=== PATIENT | female | born 1960 | race Caucasian/White ===

== ENCOUNTER → 2018-07-22 07:42 | Outpatient (CLI) | payer OTHER, SELFPAY ==
--- NOTE | 2018-07-22 | DI.MG.S_ITS ---
BILATERAL DIGITAL SCREENING MAMMOGRAM 3D/2D WITH CAD: 07/22/2018 CLINICAL: Routine screening. Family history of breast cancer. Comparison is made to exams dated: 06/30/2016 mammogram, 06/28/2015 mammogram, and 02/27/2014 mammogram - [facility]. The tissue of both breasts is heterogeneously dense. This may lower the sensitivity of mammography. Current study was also evaluated with a Computer Aided Detection (CAD) system. No significant masses, calcifications, or other findings are seen in either breast. There has been no significant interval change. IMPRESSION: NEGATIVE There is no mammographic evidence of malignancy. A 1 year screening mammogram is recommended. This exam was interpreted at Station ID: [id number]. NOTE: For mammograms, a report in lay terms will be sent to the patient. Approximately 15% of breast malignancies will not be visualized mammographically. In the management of a palpable breast mass, a negative mammogram must not discourage biopsy of a clinically suspicious lesion. Electronically Signed By: Axel maradiaga/albina:07/22/2018 17:05:43 copy to: Amena Carr letter sent: Normal Exam ACR BI-RADS Category 1: Negative [id number]
== END ==
PROVIDERS: Family Provider Family Medicine; PCP Family Medicine; Visit Provider Family Medicine
DX: Z12.31 Encounter for screening mammogram for malignant neoplasm of breast (principal); Z80.3 Family history of malignant neoplasm of breast
CPT/HCPCS: 77063; 77067

== ENCOUNTER 2018-12-18 13:58 | Emergency (ER) | payer OTHER, SELFPAY ==
[2018-12-18 14:04] VITALS: BP 149/79; PULSE 90; RESP 13; TEMP 36.6; O2SAT 99
--- NOTE | 2018-12-18 14:07 | DI.RAD.S_ITS ---
PROCEDURE: XR CHEST 1V INDICATIONS: chest pain TECHNIQUE: One view of the chest was acquired. COMPARISON: None. FINDINGS: Surgical changes and devices: None. Lungs and pleura: Lungs are clear. No pleural effusions or pneumothorax. Mediastinum: Mediastinal contours appear normal. Heart size is normal. Bones and chest wall: No suspicious bony lesions. Overlying soft tissues appear unremarkable. IMPRESSION: Portable chest within normal limits. Dictated by: Dylan Farias M.D. on 12/18/2018 at 13:22 Approved by: Dylan Farias M.D. on 12/18/2018 at 13:22
--- NOTE | 2018-12-18 14:13 | ED.CHESTPAIN ---
HPI - Chest Pain <Micheline Brown PA-C - Last Filed: 12/18/18 20:39> General Chief Complaint: Chest Pain Stated Complaint: Chest pain/sob Time Seen by Provider: 12/18/18 13:58 Source: patient Mode of arrival: ambulatory Limitations: no limitations History of Present Illness HPI narrative: This healthy 58-year-old female comes to ED secondary to onset of sudden chest pain about 1/2 hour prior to arrival. She describes this as a pressure sensation rather than pain, moderate, mid chest. It was associated with some ?slight? tingling in her right arm and fingers. No pain in the arm, no weakness. She states that she felt sweaty with this, then clammy, had the urge to have a bowel movement and did go. She states that she felt short of breath with this in that her chest was tight, no cough or wheeze. She denies any pain in her face or jaw. She denies any nausea or vomiting, states this could have been some heartburn though she does not typically get that. She denies any pain or swelling recently in her lower extremities. She states that she finished brunch about 1/2 hour prior to onset of symptoms, no new or different foods. She has not had any recent illness or fever. She denies any other similar symptoms in the past. She has no cardiac history or early family history of cardiac disease Related Data Allergies Allergy/AdvReac Type Severity Reaction Status Date / Time INGREDIENT: NDA - NO KNOWN Allergy Unknown Uncoded 10/20/17 11:54 DRUG ALLERGIES Review of Systems <Micheline Brown PA-C - Last Filed: 12/18/18 20:39> Review of Systems ROS Unobtainable: All systems reviewed & are unremarkable except as noted in HPI and below PFSH <Micheline Brown PA-C - Last Filed: 12/18/18 20:39> Medical History (Updated 12/18/18 @ 17:27 by Micheline Brown PA-C) Healthy female adult (Chronic) Surgical History (Updated 12/18/18 @ 14:26 by Micheline Brown PA-C) Status post cholecystectomy (Resolved) Social History Smoking Status: Never smoker Social History Smoking Status: Never smoker Exam <Micheline Brown PA-C - Last Filed: 12/18/18 20:39> Narrative Exam Narrative: GENERAL APPEARANCE: Patient sitting comfortably, in no distress. HEENT: PERRL, EOMI, conjunctiva pink, normal oropharynx NECK/THYROID: Neck supple, no JVD. LUNGS: Clear to auscultation bilaterally. CHEST: Mild inferior sternal tenderness to palpation, no tenderness elsewhere HEART: Regular rate and rhythm without murmur, normal S1, S2, no S3 or S4. ABDOMEN: Soft, NT, ND, + BS x 4 quadrants EXTREMITIES: No cyanosis or edema. No calf tenderness NEUROLOGIC: Alert and oriented with normal speech, gait, and coordination DERMATOLOGIC: No exanthem NEUROLOGIC: Alert and oriented, normal speech, gait and coordination. Initial Vital Signs Initial Vital Signs: Vital Signs Temperature 97.8 F 12/18/18 14:04 Pulse Rate 90 12/18/18 14:04 Respiratory Rate 13 12/18/18 14:04 Blood Pressure 149/79 H 12/18/18 14:04 Pulse Oximetry 99 12/18/18 14:04 <Noman Weaver DO - Last Filed: 12/20/18 08:16> Initial Vital Signs Initial Vital Signs: Vital Signs Temperature 97.8 F 12/18/18 14:04 Pulse Rate 90 12/18/18 14:04 Respiratory Rate 13 12/18/18 14:04 Blood Pressure 149/79 H 12/18/18 14:04 Pulse Oximetry 99 12/18/18 14:04 Scores <Micheline Brown PA-C - Last Filed: 12/18/18 20:39> HEART Score Heart Score history: Slightly Suspicious Heart Score EKG: Normal Heart Score Age: 45-64 years old Heart Score risk factors: No known risk factors Heart Score troponin: < or = to normal limit Heart Score Total: 1 Course <Micheline Brown PA-C - Last Filed: 12/18/18 20:39> Orders Ordered: Discontinued Medications Aspirin (Aspirin) 325 mg PO NOW ONE Stop: 12/18/18 14:29 Last Admin: 12/18/18 14:36 Dose: Not Given Aspirin (Aspirin Chew) 324 mg PO NOW ONE Stop: 12/18/18 14:37 Last Admin: 12/18/18 14:37 Dose: 324 mg Reevaluation(s) Additional Reevaluation(s): Patient continued to feel improved shortly after discharge and felt well within about 30 minutes of arrival. Her symptoms continue to gradually resolve. Symptoms started at rest, atypical for cardiac pain. Heart score 1. Reviewed findings with patient including repeat troponin. She agrees to follow up with PCP and discuss whether to pursue stress testing. She agreed to return if any new or acutely worsening symptoms in the interim. Vital Signs - 8 hr 12/18/18 14:04 12/18/18 15:04 12/18/18 16:00 Temperature 97.8 F Pulse Rate 90 80 79 Respiratory Rate 13 18 17 Blood Pressure 149/79 H Blood Pressure [Left Arm] 123/76 113/69 Pulse Oximetry 99 97 97 12/18/18 17:37 Temperature Pulse Rate 82 Respiratory Rate 16 Blood Pressure 127/74 Blood Pressure [Left Arm] Pulse Oximetry 97 <Noman Weaver DO - Last Filed: 12/20/18 08:16> Orders Ordered: Discontinued Medications Aspirin (Aspirin) 325 mg PO NOW ONE Stop: 12/18/18 14:29 Last Admin: 12/18/18 14:36 Dose: Not Given Aspirin (Aspirin Chew) 324 mg PO NOW ONE Stop: 12/18/18 14:37 Last Admin: 12/18/18 14:37 Dose: 324 mg Vital Signs - 8 hr 12/18/18 14:04 12/18/18 15:04 12/18/18 16:00 Temperature 97.8 F Pulse Rate 90 80 79 Respiratory Rate 13 18 17 Blood Pressure 149/79 H Blood Pressure [Left Arm] 123/76 113/69 Pulse Oximetry 99 97 97 12/18/18 17:37 Temperature Pulse Rate 82 Respiratory Rate 16 Blood Pressure 127/74 Blood Pressure [Left Arm] Pulse Oximetry 97 MDM - Chest Pain <Micheline Brown PA-C - Last Filed: 12/18/18 20:39> Lab Data Attestation: I reviewed the patient's lab results. Result diagrams: 12/18/18 14:10 12/18/18 14:10 Lab Results 12/18/18 12/18/18 12/18/18 Range/Units 14:10 14:10 14:10 WBC 8.9 (4.5-11.0) X10^3/uL RBC 4.67 (4.0-5.2) X10^6/uL Hgb 15.3 (12.0-16.0) g/dL Hct 44.9 (36-46) % MCV 96.1 (80-100) fL MCH 32.8 (26-34) PG MCHC 34.1 (30-36) % RDW 12.9 (11.6-14.8) % Plt Count 325 (150-400) X10^3/uL Neut % (Auto) 54.8 (50-75) % Lymph % (Auto) 32.4 (25-40) % Mcleod % (Auto) 7.0 (3-14) % Eos % (Auto) 5.1 H (2-4) % Baso % (Auto) 0.7 (0-2) % Neut # (Auto) 4900 (1570-7658) /uL Lymph # (Auto) 2900 (4476-7734) /uL Mcleod # (Auto) 600 (0-900) /uL Eos # (Auto) 500 H (0-450) /uL Baso # (Auto) 100 (0-100) /uL PT 11.1 (10.1-12.7) SECONDS INR 1.0 (0.9-1.3) APTT 27 (26.4-36.2) SECONDS D-Dimer (<230) ng/mL Sodium 139 (137-145) mmol/L Potassium 3.8 (3.4-5.1) mmol/L Chloride 101 (98-107) mmol/L Carbon Dioxide 28 (22-32) mmol/L BUN 20 H (7-17) mg/dL Creatinine 0.90 (0.52-1.04) mg/dL Estimated GFR > 60.0 (>60) mL/min BUN/Creatinine Ratio 22.2 H (6-22) Glucose 122 H (70-100) mg/dL Calcium 10.0 (8.4-10.2) mg/dL Total Bilirubin 0.7 (0.2-1.3) mg/dL AST 92 H (14-36) IU/L ALT 47 (9-52) IU/L Alkaline Phosphatase 74 (38-126) U/L Total Creatine Kinase 217 H (30-135) U/L CK-MB (CK-2) 2.99 H (<2.37) ng/mL CK-MB (CK-2) Rel Index 1.4 L (1.5-5.0) % Troponin I < 0.012 (0.01-0.034) ng/mL Total Protein 7.2 (6.3-8.2) g/dL Albumin 4.5 (3.5-5.0) g/dL Globulin 2.7 (1.7-4.1) g/dL Albumin/Globulin Ratio 1.7 (1.0-2.8) Lipase 105 (23-300) U/L 12/18/18 12/18/18 Range/Units 14:10 16:20 WBC (4.5-11.0) X10^3/uL RBC (4.0-5.2) X10^6/uL Hgb (12.0-16.0) g/dL Hct (36-46) % MCV (80-100) fL MCH (26-34) PG MCHC (30-36) % RDW (11.6-14.8) % Plt Count (150-400) X10^3/uL Neut % (Auto) (50-75) % Lymph % (Auto) (25-40) % Mcleod % (Auto) (3-14) % Eos % (Auto) (2-4) % Baso % (Auto) (0-2) % Neut # (Auto) (1384-4761) /uL Lymph # (Auto) (3795-1881) /uL Mcleod # (Auto) (0-900) /uL Eos # (Auto) (0-450) /uL Baso # (Auto) (0-100) /uL PT (10.1-12.7) SECONDS INR (0.9-1.3) APTT (26.4-36.2) SECONDS D-Dimer 128 (<230) ng/mL Sodium (137-145) mmol/L Potassium (3.4-5.1) mmol/L Chloride (98-107) mmol/L Carbon Dioxide (22-32) mmol/L BUN (7-17) mg/dL Creatinine (0.52-1.04) mg/dL Estimated GFR (>60) mL/min BUN/Creatinine Ratio (6-22) Glucose (70-100) mg/dL Calcium (8.4-10.2) mg/dL Total Bilirubin (0.2-1.3) mg/dL AST (14-36) IU/L ALT (9-52) IU/L Alkaline Phosphatase (38-126) U/L Total Creatine Kinase (30-135) U/L CK-MB (CK-2) (<2.37) ng/mL CK-MB (CK-2) Rel Index (1.5-5.0) % Troponin I < 0.012 (0.01-0.034) ng/mL Total Protein (6.3-8.2) g/dL Albumin (3.5-5.0) g/dL Globulin (1.7-4.1) g/dL Albumin/Globulin Ratio (1.0-2.8) Lipase (23-300) U/L Imaging Data Chest x-ray: Radiologist's impression: [place] [address] XRay Report Signed Patient: Neelam Dunne [facility]#: [id number] : 1960Acct:[id number] Age/Sex: 58 / FDate of Service: 12/18/18 Loc: ED Accession Number: [id number] Procedure: XR chest 1V Ordering Provider: Noman Weaver D.O. PROCEDURE: XR CHEST 1V INDICATIONS: chest pain TECHNIQUE: One view of the chest was acquired. COMPARISON: None. FINDINGS: Surgical changes and devices: None. Lungs and pleura: Lungs are clear. No pleural effusions or pneumothorax. Mediastinum: Mediastinal contours appear normal. Heart size is normal. Bones and chest wall: No suspicious bony lesions. Overlying soft tissues appear unremarkable. IMPRESSION: Portable chest within normal limits. Dictated by: Dylan Farias M.D. on 12/18/2018 at 13:22 Approved by: Dylan Farias M.D. on 12/18/2018 at 13:22 ECG Data Attestation: I personally reviewed and interpreted this ECG as follows: (Normal sinus rhythm, a rate 71, normal axis) Prior ECG tracings: not available for review <Noman Weaver DO - Last Filed: 12/20/18 08:16> Lab Data Lab Results 12/18/18 12/18/18 12/18/18 Range/Units 14:10 14:10 14:10 WBC 8.9 (4.5-11.0) X10^3/uL RBC 4.67 (4.0-5.2) X10^6/uL Hgb 15.3 (12.0-16.0) g/dL Hct 44.9 (36-46) % MCV 96.1 (80-100) fL MCH 32.8 (26-34) PG MCHC 34.1 (30-36) % RDW 12.9 (11.6-14.8) % Plt Count 325 (150-400) X10^3/uL Neut % (Auto) 54.8 (50-75) % Lymph % (Auto) 32.4 (25-40) % Mcleod % (Auto) 7.0 (3-14) % Eos % (Auto) 5.1 H (2-4) % Baso % (Auto) 0.7 (0-2) % Neut # (Auto) 4900 (5322-8784) /uL Lymph # (Auto) 2900 (3161-8178) /uL Mcleod # (Auto) 600 (0-900) /uL Eos # (Auto) 500 H (0-450) /uL Baso # (Auto) 100 (0-100) /uL PT 11.1 (10.1-12.7) SECONDS INR 1.0 (0.9-1.3) APTT 27 (26.4-36.2) SECONDS D-Dimer (<230) ng/mL Sodium 139 (137-145) mmol/L Potassium 3.8 (3.4-5.1) mmol/L Chloride 101 (98-107) mmol/L Carbon Dioxide 28 (22-32) mmol/L BUN 20 H (7-17) mg/dL Creatinine 0.90 (0.52-1.04) mg/dL Estimated GFR > 60.0 (>60) mL/min BUN/Creatinine Ratio 22.2 H (6-22) Glucose 122 H (70-100) mg/dL Calcium 10.0 (8.4-10.2) mg/dL Total Bilirubin 0.7 (0.2-1.3) mg/dL AST 92 H (14-36) IU/L ALT 47 (9-52) IU/L Alkaline Phosphatase 74 (38-126) U/L Total Creatine Kinase 217 H (30-135) U/L CK-MB (CK-2) 2.99 H (<2.37) ng/mL CK-MB (CK-2) Rel Index 1.4 L (1.5-5.0) % Troponin I < 0.012 (0.01-0.034) ng/mL Total Protein 7.2 (6.3-8.2) g/dL Albumin 4.5 (3.5-5.0) g/dL Globulin 2.7 (1.7-4.1) g/dL Albumin/Globulin Ratio 1.7 (1.0-2.8) Lipase 105 (23-300) U/L 12/18/18 12/18/18 Range/Units 14:10 16:20 WBC (4.5-11.0) X10^3/uL RBC (4.0-5.2) X10^6/uL Hgb (12.0-16.0) g/dL Hct (36-46) % MCV (80-100) fL MCH (26-34) PG MCHC (30-36) % RDW (11.6-14.8) % Plt Count (150-400) X10^3/uL Neut % (Auto) (50-75) % Lymph % (Auto) (25-40) % Mcleod % (Auto) (3-14) % Eos % (Auto) (2-4) % Baso % (Auto) (0-2) % Neut # (Auto) (4968-1350) /uL Lymph # (Auto) (9503-6137) /uL Mcleod # (Auto) (0-900) /uL Eos # (Auto) (0-450) /uL Baso # (Auto) (0-100) /uL PT (10.1-12.7) SECONDS INR (0.9-1.3) APTT (26.4-36.2) SECONDS D-Dimer 128 (<230) ng/mL Sodium (137-145) mmol/L Potassium (3.4-5.1) mmol/L Chloride (98-107) mmol/L Carbon Dioxide (22-32) mmol/L BUN (7-17) mg/dL Creatinine (0.52-1.04) mg/dL Estimated GFR (>60) mL/min BUN/Creatinine Ratio (6-22) Glucose (70-100) mg/dL Calcium (8.4-10.2) mg/dL Total Bilirubin (0.2-1.3) mg/dL AST (14-36) IU/L ALT (9-52) IU/L Alkaline Phosphatase (38-126) U/L Total Creatine Kinase (30-135) U/L CK-MB (CK-2) (<2.37) ng/mL CK-MB (CK-2) Rel Index (1.5-5.0) % Troponin I < 0.012 (0.01-0.034) ng/mL Total Protein (6.3-8.2) g/dL Albumin (3.5-5.0) g/dL Globulin (1.7-4.1) g/dL Albumin/Globulin Ratio (1.0-2.8) Lipase (23-300) U/L Discharge Plan Departure Patient Disposition: Home Clinical Impression: Chest pain Qualifiers: Chest pain type: unspecified Qualified Code(s): R07.9 - Chest pain, unspecified Discharge Date/Time: 12/18/18 17:37 Interventions: ED Discharge Assessment Last Done: 12/18/18 17:37 Instructions: DI for Chest Pain Activity Restrictions/Additional Instructions: As we talked about, you should return to the closest emergency department if you have any chest pain again, shortness of breath or other worsening symptoms. Your lab testing and x-ray did not show any acute problem today, nor did your EKG. Please follow-up with your PCP in the next few days for recheck and to talk about whether to do any further testing such as a stress test. Referrals: Gus Villalobos MD [Primary Care Provider] - <Noman Weaver DO - Last Filed: 12/20/18 08:16> [facility] ED Attending Brenda Attestation: I was immediately available in the department for consultation. Documentation has been reviewed. I agree with assessment and plan.
[2018-12-18 14:18] LABS: Add Manual Diff / Slide Review NO; Basophils Absolute Auto 100 /uL (0-100); Basophils Percent Auto 0.7 % (0-2); Eosinophils Absolute Auto 500 /uL (0-450); Eosinophils Percent Auto 5.1 % (2-4); Hematocrit 44.9 % (36-46); Hemoglobin 15.3 g/dL (12.0-16.0); Lymphocytes Absolute Auto 2900 /uL (1100-4500); Lymphocytes Percent Auto 32.4 % (25-40); Mean Corpuscular HGB Conc 34.1 % (30-36); Mean Corpuscular Hemoglobin 32.8 PG (26-34); Mean Corpuscular Volume 96.1 fL (80-100); Monocytes Absolute Auto 600 /uL (0-900); Neutrophils Absolute Auto 4900 /uL (1500-7000); Neutrophils Percent Auto 54.8 % (50-75); Platelet Count 325 X10^3/uL (150-400); Red Blood Cell Count 4.67 X10^6/uL (4.0-5.2); Red Cell Distribution Width 12.9 % (11.6-14.8); White Blood Cell Count 8.9 X10^3/uL (4.5-11.0)
[2018-12-18 14:24] LABS: Prothrombin Time 11.1 SECONDS (10.1-12.7)
[2018-12-18 14:27] LABS: PTT Partial Thromboplastin Tim 27 SECONDS (26.4-36.2)
--- NOTE | 2018-12-18 14:27 | ED_ITS ---
HPI - Chest Pain <Micheline Brown PA-C - Last Filed: 12/18/18 20:39> General Chief Complaint: Chest Pain Stated Complaint: Chest pain/sob Time Seen by Provider: 12/18/18 13:58 Source: patient Mode of arrival: ambulatory Limitations: no limitations History of Present Illness HPI narrative: This healthy 58-year-old female comes to ED secondary to onset of sudden chest pain about 1/2 hour prior to arrival. She describes this as a pressure sensation rather than pain, moderate, mid chest. It was associated with some ?slight? tingling in her right arm and fingers. No pain in the arm, no weakness. She states that she felt sweaty with this, then clammy, had the urge to have a bowel movement and did go. She states that she felt short of breath with this in that her chest was tight, no cough or wheeze. She denies any pain in her face or jaw. She denies any nausea or vomiting, states this could have been some heartburn though she does not typically get that. She denies any pain or swelling recently in her lower extremities. She states that she finished brunch about 1/2 hour prior to onset of symptoms, no new or different foods. She has not had any recent illness or fever. She denies any other similar symptoms in the past. She has no cardiac history or early family history of cardiac disease Related Data Allergies Allergy/AdvReac Type Severity Reaction Status Date / Time INGREDIENT: NDA - NO KNOWN Allergy Unknown Uncoded 10/20/17 11:54 DRUG ALLERGIES Review of Systems <Micheline Brown PA-C - Last Filed: 12/18/18 20:39> Review of Systems ROS Unobtainable: All systems reviewed & are unremarkable except as noted in HPI and below PFSH <Micheline Brown PA-C - Last Filed: 12/18/18 20:39> Medical History (Updated 12/18/18 @ 17:27 by Micheline Brown PA-C) Healthy female adult (Chronic) Surgical History (Updated 12/18/18 @ 14:26 by Micheline Brown PA-C) Status post cholecystectomy (Resolved) Social History Smoking Status: Never smoker Social History Smoking Status: Never smoker Exam <Micheline Brown PA-C - Last Filed: 12/18/18 20:39> Narrative Exam Narrative: GENERAL APPEARANCE: Patient sitting comfortably, in no distress. HEENT: PERRL, EOMI, conjunctiva pink, normal oropharynx NECK/THYROID: Neck supple, no JVD. LUNGS: Clear to auscultation bilaterally. CHEST: Mild inferior sternal tenderness to palpation, no tenderness elsewhere HEART: Regular rate and rhythm without murmur, normal S1, S2, no S3 or S4. ABDOMEN: Soft, NT, ND, + BS x 4 quadrants EXTREMITIES: No cyanosis or edema. No calf tenderness NEUROLOGIC: Alert and oriented with normal speech, gait, and coordination DERMATOLOGIC: No exanthem NEUROLOGIC: Alert and oriented, normal speech, gait and coordination. Initial Vital Signs Initial Vital Signs: Vital Signs Temperature 97.8 F 12/18/18 14:04 Pulse Rate 90 12/18/18 14:04 Respiratory Rate 13 12/18/18 14:04 Blood Pressure 149/79 H 12/18/18 14:04 Pulse Oximetry 99 12/18/18 14:04 <Noman Weaver DO - Last Filed: 12/20/18 08:16> Initial Vital Signs Initial Vital Signs: Vital Signs Temperature 97.8 F 12/18/18 14:04 Pulse Rate 90 12/18/18 14:04 Respiratory Rate 13 12/18/18 14:04 Blood Pressure 149/79 H 12/18/18 14:04 Pulse Oximetry 99 12/18/18 14:04 Scores <Micheline Brown PA-C - Last Filed: 12/18/18 20:39> HEART Score Heart Score history: Slightly Suspicious Heart Score EKG: Normal Heart Score Age: 45-64 years old Heart Score risk factors: No known risk factors Heart Score troponin: < or = to normal limit Heart Score Total: 1 Course <Micheline Brown PA-C - Last Filed: 12/18/18 20:39> Orders Ordered: Discontinued Medications Aspirin (Aspirin) 325 mg PO NOW ONE Stop: 12/18/18 14:29 Last Admin: 12/18/18 14:36 Dose: Not Given Aspirin (Aspirin Chew) 324 mg PO NOW ONE Stop: 12/18/18 14:37 Last Admin: 12/18/18 14:37 Dose: 324 mg Reevaluation(s) Additional Reevaluation(s): Patient continued to feel improved shortly after d ischarge and felt well within about 30 minutes of arrival. Her symptoms continue to gradually resolve. Symptoms started at rest, atypical for cardiac pain. Heart score 1. Reviewed findings with patient including repeat troponin. She agrees to follow up with PCP and discuss whether to pursue stress testing. She agreed to return if any new or acutely worsening symptoms in the interim. Vital Signs - 8 hr 12/18/18 14:04 12/18/18 15:04 12/18/18 16:00 Temperature 97.8 F Pulse Rate 90 80 79 Respiratory Rate 13 18 17 Blood Pressure 149/79 H Blood Pressure [Left Arm] 123/76 113/69 Pulse Oximetry 99 97 97 12/18/18 17:37 Temperature Pulse Rate 82 Respiratory Rate 16 Blood Pressure 127/74 Blood Pressure [Left Arm] Pulse Oximetry 97 <Noman Weaver DO - Last Filed: 12/20/18 08:16> Orders Ordered: Discontinued Medications Aspirin (Aspirin) 325 mg PO NOW ONE Stop: 12/18/18 14:29 Last Admin: 12/18/18 14:36 Dose: Not Given Aspirin (Aspirin Chew) 324 mg PO NOW ONE Stop: 12/18/18 14:37 Last Admin: 12/18/18 14:37 Dose: 324 mg Vital Signs - 8 hr 12/18/18 14:04 12/18/18 15:04 12/18/18 16:00 Temperature 97.8 F Pulse Rate 90 80 79 Respiratory Rate 13 18 17 Blood Pressure 149/79 H Blood Pressure [Left Arm] 123/76 113/69 Pulse Oximetry 99 97 97 12/18/18 17:37 Temperature Pulse Rate 82 Respiratory Rate 16 Blood Pressure 127/74 Blood Pressure [Left Arm] Pulse Oximetry 97 MDM - Chest Pain <Micheline Brown PA-C - Last Filed: 12/18/18 20:39> Lab Data Attestation: I reviewed the patient's lab results. Result diagrams: 12/18/18 14:10 12/18/18 14:10 Lab Results 12/18/18 12/18/18 12/18/18 Range/Units 14:10 14:10 14:10 WBC 8.9 (4.5-11.0) X10^3/uL RBC 4.67 (4.0-5.2) X10^6/uL Hgb 15.3 (12.0-16.0) g/dL Hct 44.9 (36-46) % MCV 96.1 (80-100) fL MCH 32.8 (26-34) PG MCHC 34.1 (30-36) % RDW 12.9 (11.6-14.8) % Plt Count 325 (150-400) X10^3/uL Neut % (Auto) 54.8 (50-75) % Lymph % (Auto) 32.4 (25-40) % Meade % (Auto) 7.0 (3-14) % Eos % (Auto) 5.1 H (2-4) % Baso % (Auto) 0.7 (0-2) % Neut # (Auto) 4900 (5615-6459) /uL Lymph # (Auto) 2900 (9262-1226) /uL Meade # (Auto) 600 (0-900) /uL Eos # (Auto) 500 H (0-450) /uL Baso # (Auto) 100 (0-100) /uL PT 11.1 (10.1-12.7) SECONDS INR 1.0 (0.9-1.3) APTT 27 (26.4-36.2) SECONDS D-Dimer (<230) ng/mL Sodium 139 (137-145) mmol/L Potassium 3.8 (3.4-5.1) mmol/L Chloride 101 (98-107) mmol/L Carbon Dioxide 28 (22-32) mmol/L BUN 20 H (7-17) mg/dL Creatinine 0.90 (0.52-1.04) mg/dL Estimated GFR > 60.0 (>60) mL/min BUN/Creatinine Ratio 22.2 H (6-22) Glucose 122 H (70-100) mg/dL Calcium 10.0 (8.4-10.2) mg/dL Total Bilirubin 0.7 (0.2-1.3) mg/dL AST 92 H (14-36) IU/L ALT 47 (9-52) IU/L Alkaline Phosphatase 74 (38-126) U/L Total Creatine Kinase 217 H (30-135) U/L CK-MB (CK-2) 2.99 H (<2.37) ng/mL CK-MB (CK-2) Rel Index 1.4 L (1.5-5.0) % Troponin I < 0.012 (0.01-0.034) ng/mL Total Protein 7.2 (6.3-8.2) g/dL Albumin 4.5 (3.5-5.0) g/dL Globulin 2.7 (1.7-4.1) g/dL Albumin/Globulin Ratio 1.7 (1.0-2.8) Lipase 105 (23-300) U/L 12/18/18 12/18/18 Range/Units 14:10 16:20 WBC (4.5-11.0) X10^3/uL RBC (4.0-5.2) X10^6/uL Hgb (12.0-16.0) g/dL Hct (36-46) % MCV (80-100) fL MCH (26-34) PG MCHC (30-36) % RDW (11.6-14.8) % Plt Count (150-400) X10^3/uL Neut % (Auto) (50-75) % Lymph % (Auto) (25-40) % Meade % (Auto) (3-14) % Eos % (Auto) (2-4) % Baso % (Auto) (0-2) % Neut # (Auto) (5437-1835) /uL Lymph # (Auto) (7558-2433) /uL Meade # (Auto) (0-900) /uL Eos # (Auto) (0-450) /uL Baso # (Auto) (0-100) /uL PT (10.1-12.7) SECONDS INR (0.9-1.3) APTT (26.4-36.2) SECONDS D-Dimer 128 (<230) ng/mL Sodium (137-145) mmol/L Potassium (3.4-5.1) mmol/L Chloride (98-107) mmol/L Carbon Dioxide (22-32) mmol/L BUN (7-17) mg/dL Creatinine (0.52-1.04) mg/dL Estimated GFR (>60) mL/min BUN/Creatinine Ratio (6-22) Glucose (70-100) mg/dL Calcium (8.4-10.2) mg/dL Total Bilirubin (0.2-1.3) mg/dL AST (14-36) IU/L ALT (9-52) IU/L Alkaline Phosphatase (38-126) U/L Total Creatine Kinase (30-135) U/L CK-MB (CK-2) (<2.37) ng/mL CK-MB (CK-2) Rel Index (1.5-5.0) % Troponin I < 0.012 (0.01-0.034) ng/mL Total Protein (6.3-8.2) g/dL Albumin (3.5-5.0) g/dL Globulin (1.7-4.1) g/dL Albumin/Globulin Ratio (1.0-2.8) Lipase (23-300) U/L Imaging Data Chest x-ray: Radiologist's impression: [place] [address] XRay Report Signed Patient: Neelam Dunne [facility]#: [id number] : 1960Acct:[id number] Age/Sex: 58 / FDate of Service: 12/18/18 Loc: ED Accession Number: [id number] Procedure: XR chest 1V Ordering Provider: Noman Weaver D.O. PROCEDURE: XR CHEST 1V INDICATIONS: chest pain TECHNIQUE: One view of the chest was acquired. COMPARISON: None. FINDINGS: Surgical changes and devices: None. Lungs and pleura: Lungs are clear. No pleural effusions or pneumothorax. Mediastinum: Mediastinal contours appear normal. Heart size is normal. Bones and chest wall: No suspicious bony lesions. Overlying soft tissues appear unremarkable. IMPRESSION: Portable chest within normal limits. Dictated by: Dylan Farias M.D. on 12/18/2018 at 13:22 Approved by: Dylan Farias M.D. on 12/18/2018 at 13:22 ECG Data Attestation: I personally reviewed and interpreted this ECG as follows: (Normal sinus rhythm, a rate 71, normal axis) Prior ECG tracings: not available for review <Noman Weaver DO - Last Filed: 12/20/18 08:16> Lab Data Lab Results 12/18/18 12/18/18 12/18/18 Range/Units 14:10 14:10 14:10 WBC 8.9 (4.5-11.0) X10^3/uL RBC 4.67 (4.0-5.2) X10^6/uL Hgb 15.3 (12.0-16.0) g/dL Hct 44.9 (36-46) % MCV 96.1 (80-100) fL MCH 32.8 (26-34) PG MCHC 34.1 (30-36) % RDW 12.9 (11.6-14.8) % Plt Count 325 (150-400) X10^3/uL Neut % (Auto) 54.8 (50-75) % Lymph % (Auto) 32.4 (25-40) % Meade % (Auto) 7.0 (3-14) % Eos % (Auto) 5.1 H (2-4) % Baso % (Auto) 0.7 (0-2) % Neut # (Auto) 4900 (4111-5038) /uL Lymph # (Auto) 2900 (0774-2130) /uL Meade # (Auto) 600 (0-900) /uL Eos # (Auto) 500 H (0-450) /uL Baso # (Auto) 100 (0-100) /uL PT 11.1 (10.1-12.7) SECONDS INR 1.0 (0.9-1.3) APTT 27 (26.4-36.2) SECONDS D-Dimer (<230) ng/mL Sodium 139 (137-145) mmol/L Potassium 3.8 (3.4-5.1) mmol/L Chloride 101 (98-107) mmol/L Carbon Dioxide 28 (22-32) mmol/L BUN 20 H (7-17) mg/dL Creatinine 0.90 (0.52-1.04) mg/dL Estimated GFR > 60.0 (>60) mL/min BUN/Creatinine Ratio 22.2 H (6-22) Glucose 122 H (70-100) mg/dL Calcium 10.0 (8.4-10.2) mg/dL Total Bilirubin 0.7 (0.2-1.3) mg/dL AST 92 H (14-36) IU/L ALT 47 (9-52) IU/L Alkaline Phosphatase 74 (38-126) U/L Total Creatine Kinase 217 H (30-135) U/L CK-MB (CK-2) 2.99 H (<2.37) ng/mL CK-MB (CK-2) Rel Index 1.4 L (1.5-5.0) % Troponin I < 0.012 (0.01-0.034) ng/mL Total Protein 7.2 (6.3-8.2) g/dL Albumin 4.5 (3.5-5.0) g/dL Globulin 2.7 (1.7-4.1) g/dL Albumin/Globulin Ratio 1.7 (1.0-2.8) Lipase 105 (23-300) U/L 12/18/18 12/18/18 Range/Units 14:10 16:20 WBC (4.5-11.0) X10^3/uL RBC (4.0-5.2) X10^6/uL Hgb (12.0-16.0) g/dL Hct (36-46) % MCV (80-100) fL MCH (26-34) PG MCHC (30-36) % RDW (11.6-14.8) % Plt Count (150-400) X10^3/uL Neut % (Auto) (50-75) % Lymph % (Auto) (25-40) % Meade % (Auto) (3-14) % Eos % (Auto) (2-4) % Baso % (Auto) (0-2) % Neut # (Auto) (8403-3979) /uL Lymph # (Auto) (6728-2600) /uL Meade # (Auto) (0-900) /uL Eos # (Auto) (0-450) /uL Baso # (Auto) (0-100) /uL PT (10.1-12.7) SECONDS INR (0.9-1.3) APTT (26.4-36.2) SECONDS D-Dimer 128 (<230) ng/mL Sodium (137-145) mmol/L Potassium (3.4-5.1) mmol/L Chloride (98-107) mmol/L Carbon Dioxide (22-32) mmol/L BUN (7-17) mg/dL Creatinine (0.52-1.04) mg/dL Estimated GFR (>60) mL/min BUN/Creatinine Ratio (6-22) Glucose (70-100) mg/dL Calcium (8.4-10.2) mg/dL Total Bilirubin (0.2-1.3) mg/dL AST (14-36) IU/L ALT (9-52) IU/L Alkaline Phosphatase (38-126) U/L Total Creatine Kinase (30-135) U/L CK-MB (CK-2) (<2.37) ng/mL CK-MB (CK-2) Rel Index (1.5-5.0) % Troponin I < 0.012 (0.01-0.034) ng/mL Total Protein (6.3-8.2) g/dL Albumin (3.5-5.0) g/dL Globulin (1.7-4.1) g/dL Albumin/Globulin Ratio (1.0-2.8) Lipase (23-300) U/L Discharge Plan Departure Patient Disposition: Home Clinical Impression: Chest pain Qualifiers: Chest pain type: unspecified Qualified Code(s): R07.9 - Chest pain, unspecified Discharge Date/Time: 12/18/18 17:37 Interventions: ED Discharge Assessment Last Done: 12/18/18 17:37 Instructions: DI for Chest Pain Activity Restrictions/Additional Instructions: As we talked about, you should return to the closest emergency department if you have any chest pain again, shortness of breath or other worsening symptoms. Your lab testing and x-ray did not show any acute problem today, nor did your EKG. Please follow-up with your PCP in the next few days for recheck and to talk about whether to do any further testing such as a stress test. Referrals: Gus Villalobos MD [Primary Care Provider] - <Nomna Weaver DO - Last Filed: 12/20/18 08:16> Cosign ED Attending Brenda Attestation: I was immediately available in the department for consultation. Documentation has been reviewed. I agree with a ssessment and plan.
[2018-12-18 14:28] LABS: Alanine Aminotransferase 47 IU/L (9-52); Albumin 4.5 g/dL (3.5-5.0); Albumin Globulin Ratio 1.7 (1.0-2.8); Alkaline Phosphatase 74 U/L (38-126); Aspartate Aminotransferase 92 IU/L (14-36); BUN Creatinine Ratio 22.2 (6-22); Bilirubin Total 0.7 mg/dL (0.2-1.3); Blood Urea Nitrogen 20 mg/dL (7-17); Carbon Dioxide 28 mmol/L (22-32); Chloride 101 mmol/L (98-107); Creatine Kinase 217 U/L (30-135); Estimated Glomerular Filt Rate > 60.0 mL/min (>60); Globulin 2.7 g/dL (1.7-4.1); Glucose 122 mg/dL (70-100); HEMOLYSIS < 15 (0-50); Lipase 105 U/L (23-300); Potassium 3.8 mmol/L (3.4-5.1); Sodium 139 mmol/L (137-145); Total Protein 7.2 g/dL (6.3-8.2)
[2018-12-18 14:29] LABS: D Dimer 128 ng/mL (<230)
[2018-12-18] MEDS: ASPIRIN 81 MG TAB 324 MG PO (14:37)
[2018-12-18 14:39] LABS: Troponin I < 0.012 ng/mL (0.01-0.034)
[2018-12-18 14:43] LABS: CKMB % Relative Index 1.4 % (1.5-5.0); Creatine Kinase MB 2.99 ng/mL (<2.37)
[2018-12-18 15:04] VITALS: BP 123/76; PULSE 80; RESP 18; O2SAT 97
[2018-12-18 16:00] VITALS: BP 113/69; PULSE 79; RESP 17; O2SAT 97
[2018-12-18 16:51] LABS: Troponin I < 0.012 ng/mL (0.01-0.034)
[2018-12-18 17:37] VITALS: BP 127/74; PULSE 82; RESP 16; O2SAT 97
== END 2018-12-18 17:37 | disposition home or self-care (01) ==
PROVIDERS: Emergency Medicine; Emergency Provider Internal Medicine; Family Provider Family Medicine; PCP Family Medicine
DX: R07.9 Chest pain, unspecified (principal); R06.02 Shortness of breath
CPT/HCPCS: 36415; 36591; 71045; 80053; 82550; 82553; 83690; 84484; 85025; 85379; 85610; 85730; 93005; 99282; 99285

== ENCOUNTER → 2020-07-09 11:15 | Outpatient (CLI) | payer OTHER, SELFPAY ==
--- NOTE | 2020-07-09 | DI.MG.S_ITS ---
BILATERAL DIGITAL SCREENING MAMMOGRAM 3D/2D WITH CAD: 07/09/2020 CLINICAL: Routine screening. Family history of breast cancer. Comparison is made to exams dated: 07/22/2018 mammogram, 06/30/2016 mammogram, and 06/28/2015 mammogram - [facility]. The tissue of both breasts is heterogeneously dense. This may lower the sensitivity of mammography. Current study was also evaluated with a Computer Aided Detection (CAD) system. No significant masses, calcifications, or other findings are seen in either breast. There has been no significant interval change. IMPRESSION: NEGATIVE There is no mammographic evidence of malignancy. A 1 year screening mammogram is recommended. This exam was interpreted at Station ID: [id number]. NOTE: For mammograms, a report in lay terms will be sent to the patient. Approximately 15% of breast malignancies will not be visualized mammographically. In the management of a palpable breast mass, a negative mammogram must not discourage biopsy of a clinically suspicious lesion. Electronically Signed By: Homer root/albina:07/09/2020 15:27:14 copy to: Amena Carr letter sent: Normal Exam ACR BI-RADS Category 1: Negative 3341F
== END ==
PROVIDERS: Family Provider Family Medicine; PCP Family Medicine; Referring Provider Family Medicine; Visit Provider Family Medicine
DX: Z12.31 Encounter for screening mammogram for malignant neoplasm of breast (principal); Z80.3 Family history of malignant neoplasm of breast
CPT/HCPCS: 77063; 77067

== ENCOUNTER → 2020-07-31 11:00 | Outpatient (CLI) | payer OTHER, SELFPAY ==
[2020-07-31 11:33] LABS: COVID19 -Nasal RAPID Negative (Negative)
== END ==
PROVIDERS: Family Provider Family Medicine; PCP Family Medicine; Visit Provider Specialist
DX: Z20.822 Contact with and (suspected) exposure to COVID-19 (principal)
CPT/HCPCS: 87635; C9803

== ENCOUNTER 2020-08-01 07:22 | Day surgery (SDC) | payer OTHER, SELFPAY ==
--- NOTE | 2020-08-01 | PATH_ITS ---
[facility] Accession Number: [id number] . 01 Material submitted: . colon - POLYP AT 50CM . 01 Clinical history: . SCREENING COLONOSCOPY . 02 Diagnosis: Colon Polyp at 50 cm, Biopsy: Colonic mucosa with no diagnostic abnormality, consistent with polypoid redundancy. Negative for serrated lesion, dysplasia, or malignancy. Additional step section is examined. [facility] 08/06/2020 1510 Local . 02 Electronically signed: . Prince Torres MD, PhD, Pathologist NPI- [id number] . 01 Gross description: . The specimen is received in formalin, labeled polyp at 50 cm and consists of a 0.7 x 0.5 x 0.3 cm webber fragment of soft tissue, which is entirely submitted in cassette A1. ([id number]) /[facility] 08/02/2020 1726 Local . 02 Pathologist provided ICD-10: K63.5 . 02 CPT . 734511 Performed at: 01 [facility] [address], [place], [place] [id number] MD Homer Hanna MD Phone: [phone] Performed at: 02 [facility] [place] [address] [place], [place] [id number] MD Estrella Adames MD Phone: [phone]
[2020-08-01 07:55] VITALS: BP 141/82; PULSE 65; RESP 16; TEMP 36.4; O2SAT 99; BMI 24.7
[2020-08-01] MEDS: LACTATED RINGERS 1,000 ML 200 ML IV (08:04)
--- NOTE | 2020-08-01 08:42 | PM.HP.1 ---
History of Present Illness History of Present Illness Date Patient Seen: 08/01/20 Time Patient Seen: 08:43 Chief complaint: SCREENING COLONOSCOPY Narrative: The patient is woman here for screening colonoscopy. Her last exam was 6 years ago. Polyps removed at that time. Patient History Medical History Healthy female adult Surgical History Status post cholecystectomy Family & Social History Social History: household members none Tobacco & Substance use: Smoking Status Never smoker alcohol intake current alcohol intake frequency 0-2 drinks per day Substance Use Type marijuana Meds Home Medications and Allergies Home Medications Medication Instructions Recorded Confirmed Type No Known Home Medications 08/01/20 08/01/20 History Allergies Allergy/AdvReac Type Severity Reaction Status Date / Time No Known Drug Allergies Allergy Verified 08/01/20 07:49 Review of Systems Review of Systems ROS: Yes All systems reviewed with the patient and are negative except as otherwise documented Exam Vital Signs (past 8 hours): - 08/01/20 07:55 Temperature 97.6 F Pulse Rate 65 Respiratory Rate 16 Blood Pressure 141/82 H Pulse Oximetry 99 Oxygen Delivery Method Room Air Narrative Exam Narrative: Pleasant cooperative patient no apparent distress. Lungs are clear to auscultation. No rales or rhonchi. Heart regular rate and rhythm no murmur gallop. Abdomen is soft nontender without mass. No obvious hernias. Patient is alert and oriented x3. Assessment & Plan Assessment & Plan narrative: The patient for a screening colonoscopy. I have discussed the procedure with them. Risks of bleeding, perforation which would necessitate major operation, failure to find remove all lesions, the potential tattoo were all discussed. All questions were answered. They wished to proceed.
--- NOTE | 2020-08-01 08:44 | PM.PREOP ---
Pre-operative Note COVID-19 COVID-19 status: Negative Result date/Date tested (Pos, Neg/Pending): 07/31/20 Interval Note History & Physical reviewed/Exam performed by Physician: Yes Changes to H&P: No ASA Class (for procedural sedation): I
[2020-08-01] MEDS: ATROPINE 1 MG/10 ML SYRINGE IV (08:57)
[2020-08-01] MEDS: MIDAZOLAM 5 MG/5 ML VIAL IV (09:05)
[2020-08-01] MEDS: fentaNYL 250 MCG/5 ML INJ IV (09:05)
--- NOTE | 2020-08-01 09:23 | PM.OP.ENDO ---
Operative Date/Time/Diagnoses Date of procedure: 08/01/20 Time of procedure: 09:23 Pre-op diagnosis: Screening exam. Last exam 6 years ago. Patient has a personal history of polyps. Post-op diagnosis: same (Single polyp identified) Procedure & Clinicians Study performed: Colonoscopy with cold biopsy Same procedure as scheduled: Yes Indications: Screening Surgeon: Sudhir Hinson Procedure Notes Procedure in detail: The patient was placed in the left lateral decubitus position and underwent IV sedation directed by the surgeon consisting of fentanyl and Versed. Digital exam was unremarkable. The scope was inserted and advanced through the rectum into the sigmoid, descending, transverse, and ascending colon. I had to insert a stiffener in apply pressure to get that far. We then repositioned the patient and I was able to reach the cecum.. The cecum was reached identified by the ileocecal valve and the appendiceal opening. The scope was gradually brought out. One Polyp was found at 50 cm from the anal verge. The scope ultimately was retroflexed in the rectum. The appearance was normal. The scope was removed and the patient tolerated the procedure well. The prep was very good. Scope withdrawal time: 6 minutes(7 total) Sedation minutes: 33 Findings: polyp (One small polyp) Specimen(s): other (Polyp) Complications: none Post-procedure Recommendations: Colonscopy in 5 years Follow up: as needed Disposition: PACU
[2020-08-01 09:32] VITALS: BP 124/72; PULSE 65; RESP 10; TEMP 36.5; O2SAT 97
[2020-08-01 09:36] VITALS: BP 115/66; PULSE 64; RESP 11; RESP 12; O2SAT 97; O2SAT 98
[2020-08-01 09:51] VITALS: BP 120/69; PULSE 56; RESP 11; O2SAT 99
== END 2020-08-01 10:12 | disposition home or self-care (01) ==
PROVIDERS: Family Provider Family Medicine; PCP Family Medicine; Referring Provider Family Medicine; Visit Provider Specialist
PROC: 0DJD8ZZ Inspection of Lower Intestinal Tract, Via Natural or Artificial Opening Endoscopic (ICD-10-PCS; CPT 45378; principal; 2020-08-01 08:30)
DX: Z12.11 Encounter for screening for malignant neoplasm of colon (principal); Z86.010 Personal history of colon polyps; K63.5 Polyp of colon
CPT/HCPCS: 45380; 99152; 99153; J0461; J2250; J3010

== ENCOUNTER → 2021-08-28 10:15 | Outpatient (CLI) | payer OTHER, SELFPAY ==
--- NOTE | 2021-08-28 10:18 | DI.RAD.S_ITS ---
PROCEDURE: XR HIP W PEL IF DONE MILLICNET MIN 4V INDICATIONS: BACK AND HIP PAIN TECHNIQUE: AP pelvis with lateral view(s) of the bilateral hip(s). COMPARISON: None. FINDINGS: Bones: No fractures or dislocations. Mild bilateral hip joint osteoarthritic changes are seen. No evidence of avascular necrosis of femoral head. Pelvic ring appears intact. No suspicious bony lesions. Soft tissues: The visualized bowel gas pattern is normal. No suspicious soft tissue calcifications. 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 No fracture or dislocation. No evidence of avascular necrosis. Dictated by: Prem Costa M.D. on 08/28/2021 at 11:20 Approved by: Prem Costa M.D. on 08/28/2021 at 11:20
--- NOTE | 2021-08-28 10:18 | DI.RAD.S_ITS ---
PROCEDURE: XR LUMBAR SPINE 2-3V INDICATIONS: BACK AND HIP PAIN TECHNIQUE: 3 views of the lumbar spine were acquired. COMPARISON: [facility], , L-SPINE 2-3 VIEWS, 11/02/2016, 9:01. FINDINGS: Bones: 5 [id number] vertebrae are present. There is normal bony alignment. No vertebral body compression fractures. No suspicious bony lesions. Disc spaces are preserved. Sclerotic facet joints noted at L3-4, L4-5 and L5-S1. Soft tissues: Overlying bowel gas pattern is normal. No suspicious soft tissue calcifications. Moderate fecal debris throughout the colon. Surgical clips noted in the right upper quadrant. IMPRESSION: Degenerative arthropathy noted in the lower lumbar spine. Moderate colonic fecal debris and surgical clips in the right upper quadrant Approved by: Landon Larkin M.D. on 08/28/2021 at 10:59
== END ==
PROVIDERS: Family Provider Family Medicine; PCP Family Medicine; Referring Provider Family Medicine; Visit Provider Family Medicine
DX: M47.816 Spondylosis without myelopathy or radiculopathy, lumbar region (principal); M16.0 Bilateral primary osteoarthritis of hip; M25.551 Pain in right hip
CPT/HCPCS: 72100; 73522

== ENCOUNTER → 2021-12-16 09:49 | Outpatient (CLI) | payer OTHER, SELFPAY ==
--- NOTE | 2021-12-16 | DI.MG.S_ITS ---
BILATERAL DIGITAL SCREENING MAMMOGRAM 3D/2D WITH CAD: 12/16/2021 CLINICAL: Routine screening. Family history of breast cancer. Comparison is made to exams dated: 07/09/2020 mammogram, 07/22/2018 mammogram, and 06/30/2016 mammogram - [facility]. The tissue of both breasts is heterogeneously dense. This may lower the sensitivity of mammography. Current study was also evaluated with a Computer Aided Detection (CAD) system. No significant masses, calcifications, or other findings are seen in either breast. There has been no significant interval change. IMPRESSION: NEGATIVE There is no mammographic evidence of malignancy. A 1 year screening mammogram is recommended. This exam was interpreted at Station ID: [id number]. NOTE: For mammograms, a report in lay terms will be sent to the patient. Approximately 15% of breast malignancies will not be visualized mammographically. In the management of a palpable breast mass, a negative mammogram must not discourage biopsy of a clinically suspicious lesion. Electronically Signed By: Kylah good/albina:12/16/2021 16:42:29 copy to: Amena Carr letter sent: Normal Exam ACR BI-RADS Category 1: Negative 3341F
--- NOTE | 2021-12-16 09:52 | DI.MRI.S_ITS ---
PROCEDURE: MR BRAIN (IAC) WWO CON INDICATIONS: hearing loss/annual screening TECHNIQUE: Noncontrast sagittal T1 spin echo, axial FLAIR, axial gradient echo, axial diffusion and ADC through the brain. Axial thin-slice 3D CISS, coronal TruFISP, axial T1 spin echo with fat saturation through the internal auditory canals. After the administration of contrast, thin slice axial and coronal T1 spin echo with fat saturation through the internal auditory canals, and axial T1 spin echo with fat saturation through the brain. COMPARISON: None. FINDINGS: Image quality: Excellent. Cerebellopontine angles: No cerebellopontine angle masses. Inner ear structures appear normally formed. No suspicious enhancement in the internal auditory canal or along the course of the 7th cranial nerve. CSF spaces: Ventricles are normal in size and shape. No extra-axial fluid collections. Basal cisterns are patent. Brain: No intracranial bleeds or mass effects. Worley-white matter interface is intact. No abnormal intracranial enhancement. Diffusion weighted images demonstrate no acute ischemic insults. Brainstem appears normal. Normal intravascular flow voids are present. Skull and face: Calvarial marrow signal is normal. Orbits appear normal. Sinuses: Sinuses and mastoids are clear. IMPRESSION: Unremarkable MRI of the brain and internal auditory canals. No evidence of acoustic schwannoma or labyrinthitis Approved by: Landon Larkin M.D. on 12/16/2021 at 12:38
== END ==
PROVIDERS: Family Provider Family Medicine; PCP Family Medicine; Referring Provider Otolaryngology; Visit Provider Otolaryngology
DX: Z12.31 Encounter for screening mammogram for malignant neoplasm of breast (principal); Z80.3 Family history of malignant neoplasm of breast; H91.8X9 Other specified hearing loss, unspecified ear
CPT/HCPCS: 70553; 77063; 77067

== ENCOUNTER → 2022-01-20 12:21 | Outpatient (CLI) | payer OTHER, SELFPAY ==
--- NOTE | 2022-01-20 | DI.RAD.S_ITS ---
PROCEDURE: XR FOOT RT MIN 3V INDICATIONS: RIGHT FOOT PAIN TECHNIQUE: 3 views of the foot were acquired. COMPARISON: None. FINDINGS: Bones: No acute fractures or dislocations. No suspicious bony lesions. Soft tissues: No suspicious soft tissue calcification. IMPRESSION: No acute osseous abnormality. If the symptoms persist, consider cross sectional imaging such as MRI or CT for further assessment. Dictated by: Hector Levine M.D. on 01/20/2022 at 16:44 Approved by: Hector Levine M.D. on 01/20/2022 at 16:46
== END ==
PROVIDERS: Family Provider Family Medicine; PCP Family Medicine; Referring Provider Family Medicine; Visit Provider Family Medicine
DX: M79.671 Pain in right foot (principal)
CPT/HCPCS: 73630

== ENCOUNTER → 2022-02-10 14:20 | Outpatient (CLI) | payer OTHER, SELFPAY ==
--- NOTE | 2022-02-10 | DI.RAD.S_ITS ---
PROCEDURE: XR FOOT RT MIN 3V INDICATIONS: Encounter for follow-up examination after completed treatmen TECHNIQUE: 3 views of the foot were acquired. COMPARISON: [facility], CR, XR FOOT RT MIN 3V, 01/20/2022, 12:13. FINDINGS: Bones: No fractures or dislocations. No suspicious bony lesions. Incidental note is made of a bipartite medial sesamoid bone. Soft tissues: No tibiotalar joint effusion. Achilles tendon appears normal. IMPRESSION: No significant plain film abnormality can be seen. Dictated by: Dylan Farias M.D. on 02/10/2022 at 15:39 Approved by: Dylan Farias M.D. on 02/10/2022 at 15:39
== END ==
PROVIDERS: Family Provider Family Medicine; PCP Family Medicine; Referring Provider Podiatrist Foot & Ankle Surgery; Visit Provider Podiatrist Foot & Ankle Surgery
DX: Z09 Encounter for follow-up examination after completed treatment for conditions other than malignant neoplasm (principal)
CPT/HCPCS: 73630

== ENCOUNTER → 2022-06-25 08:51 | Outpatient (CLI) | payer OTHER, SELFPAY ==
--- NOTE | 2022-06-25 | DI.RAD.S_ITS ---
PROCEDURE: XR FOOT RT MIN 3V INDICATIONS: stress fracture of metatarsal bone of right foot TECHNIQUE: 3 views of the foot were acquired. COMPARISON: [facility], , XR FOOT RT MIN 3V, 02/10/2022, 14:31. FINDINGS: Bones: No fractures or dislocations. No suspicious bony lesions. Soft tissues: No tibiotalar joint effusion. Achilles tendon appears normal. IMPRESSION: Normal right foot radiographs Approved by: Landon Larkin M.D. on 06/25/2022 at 15:02
== END ==
PROVIDERS: Family Provider Family Medicine; PCP Family Medicine; Referring Provider Podiatrist Foot & Ankle Surgery; Visit Provider Podiatrist Foot & Ankle Surgery
DX: M84.374A Stress fracture, right foot, initial encounter for fracture (principal)
CPT/HCPCS: 73630

== ENCOUNTER → 2022-06-26 07:47 | Outpatient (CLI) | payer OTHER, SELFPAY ==
--- NOTE | 2022-06-26 | DI.MRI.S_ITS ---
PROCEDURE: MR FOOT RT WO CON INDICATIONS: Stress fracture, right foot, initial encounter for TECHNIQUE: Noncontrast sagittal T1 spin echo and T2 fast spin echo with fat saturation, long-axis T1 spin echo and T2 fast spin echo with fat saturation, short-axis T1 spin echo and T2 fast spin echo with fat saturation through the forefoot. COMPARISON: [facility], CR, XR FOOT RT MIN 3V, 06/25/2022, 9:07. FINDINGS: Image quality: Excellent. Bones and joints: Subtle osseous edema and periosteal new bone formation is seen at the distal 2nd metatarsal shaft that is suspicious for a healing stress fracture. Cartilage irregularity and subchondral edema are seen in the 1st metatarsal head at the first metatarsophalangeal joint and metatarsal sesamoid articulations. There is mild osseous edema within the medial hallux sesamoid that is most likely degenerative. Mild degenerative changes at the 3rd tarsometatarsal joint. No intraosseous lesions. Soft tissues: The visualized plantar foot muscles demonstrate normal signal and bulk. Visualized flexor and extensor tendons appear intact, without tenosynovitis. The distal insertions of the peroneus brevis and longus tendons appear intact. The principal Lisfranc ligament appears intact. No soft tissue ganglion cysts or bursal fluid collections. Sagittal images demonstrate no evidence for plantar plate tears. IMPRESSION: 1. Mild osseous edema within the distal 2nd metatarsal shaft with periosteal new bone formation is suspicious for a mild healing nondisplaced stress fracture. 2. Moderate degenerative changes at the 1st metatarsophalangeal joint and metatarsal sesamoid articulations with subchondral cystic changes and edema. Approved by: Hector Levine M.D. on 06/26/2022 at 10:40
== END ==
PROVIDERS: Family Provider Family Medicine; PCP Family Medicine; Referring Provider Podiatrist Foot & Ankle Surgery; Visit Provider Podiatrist Foot & Ankle Surgery
DX: M84.374A Stress fracture, right foot, initial encounter for fracture (principal)
CPT/HCPCS: 73718

== ENCOUNTER → 2022-09-08 10:46 | Outpatient (CLI) | payer OTHER, SELFPAY ==
--- NOTE | 2022-09-08 | DI.RAD.S_ITS ---
PROCEDURE: XR DEXA AXIAL SKELETON INDICATIONS: OSTEOPOROSIS SCREENING COMPARISON: [facility], CR, DEXA AXIAL SKELETON, 06/30/2016, 10:46. FINDINGS: This blank DEXA report has been sent in error by the PACS system. The correct and complete report will be forthcoming in 1-2 days. Thank you for your patience and understanding. Dictated by: Hugo Khan M.D. on 09/10/2022 at 8:28 Approved by: Hugo Khan M.D. on 10/01/2022 at 13:48
== END ==
PROVIDERS: Family Provider Family Medicine; PCP Family Medicine; Referring Provider Internal Medicine; Visit Provider Internal Medicine
DX: Z13.820 Encounter for screening for osteoporosis (principal); Z78.0 Asymptomatic menopausal state; M85.852 Other specified disorders of bone density and structure, left thigh; Z87.311 Personal history of (healed) other pathological fracture
CPT/HCPCS: 77080

== ENCOUNTER → 2022-12-22 11:04 | Outpatient (CLI) | payer OTHER, SELFPAY ==
--- NOTE | 2022-12-22 | DI.MG.S_ITS ---
BILATERAL DIGITAL SCREENING MAMMOGRAM 3D/2D WITH CAD: 12/22/2022 CLINICAL: Routine screening. Family history of breast cancer. Comparison is made to exams dated: 12/16/2021 mammogram, 07/09/2020 mammogram, and 07/22/2018 mammogram - [facility]. Both breasts are heterogeneously dense, which may obscure small masses (category c / 51-75% glandular tissue). Current study was also evaluated with a Computer Aided Detection (CAD) system. No significant masses, calcifications, or other findings are seen in either breast. There has been no significant interval change. IMPRESSION: NEGATIVE There is no mammographic evidence of malignancy. A 1 year screening mammogram is recommended. Based on the Tyrer Cuzick model (a risk assessment model) the patient's lifetime risk is 17.2% and her 10 year risk is 7.2%. According to the ACR, ACS, and NCCN guidelines, an annual breast MRI exam along with mammogram is recommended if the patient's lifetime risk is 20% or greater. This exam was interpreted at Station ID: [id number]. NOTE: For mammograms, a report in lay terms will be sent to the patient. Approximately 15% of breast malignancies will not be visualized mammographically. In the management of a palpable breast mass, a negative mammogram must not discourage biopsy of a clinically suspicious lesion. Electronically Signed By: Sravan fagan/albina:12/22/2022 12:21:28 copy to: Amena Carr letter sent: Normal Exam ACR BI-RADS Category 1: Negative [id number]
== END ==
PROVIDERS: Family Provider Family Medicine; PCP Family Medicine; Referring Provider Internal Medicine; Visit Provider Internal Medicine
DX: Z12.31 Encounter for screening mammogram for malignant neoplasm of breast (principal); Z80.3 Family history of malignant neoplasm of breast
CPT/HCPCS: 77063; 77067

== ENCOUNTER → 2023-12-21 09:26 | Outpatient (CLI) | payer OTHER, SELFPAY ==
--- NOTE | 2023-12-21 | DI.RAD.S_ITS ---
PROCEDURE: XR RIBS RT 2V INDICATIONS: rib pain on right side TECHNIQUE: 2 views of the ribs were acquired. COMPARISON: None. FINDINGS: Surgical changes and devices: Cholecystectomy clips. Bones and chest wall: No fractures or dislocations. No suspicious bony lesions. Overlying soft tissues appear unremarkable. Lungs and pleura: The visualized lung appears clear. No pleural effusions or pneumothorax are visible. IMPRESSION: No displaced rib fracture. Dictated by: Pasha Ruiz M.D. on 12/21/2023 at 10:01 Approved by: Pasha Ruiz M.D. on 12/21/2023 at 10:02
== END ==
PROVIDERS: Family Provider Family Medicine; PCP Family Medicine; Referring Provider Internal Medicine; Visit Provider Internal Medicine
DX: R07.81 Pleurodynia (principal)
CPT/HCPCS: 71100

== ENCOUNTER → 2024-02-15 14:55 | Outpatient (CLI) | payer OTHER, SELFPAY ==
--- NOTE | 2024-02-15 14:55 | DI.MG.S_ITS ---
BILATERAL DIGITAL SCREENING MAMMOGRAM 3D/2D WITH CAD: 02/15/2024 CLINICAL: Routine screening. Family history of breast cancer. Comparison is made to exams dated: 12/22/2022 mammogram, 12/16/2021 mammogram, and 07/09/2020 mammogram - [facility]. Both breasts are heterogeneously dense, which may obscure small masses (category c / 51-75% glandular tissue). Current study was also evaluated with a Computer Aided Detection (CAD) system. No significant masses, calcifications, or other findings are seen in either breast. There has been no significant interval change. IMPRESSION: NEGATIVE There is no mammographic evidence of malignancy. A 1 year screening mammogram is recommended. Based on the Tyrer Cuzick model (a risk assessment model) the patient's lifetime risk is 16.9% and her 10 year risk is 7.3%. According to the ACR, ACS, and NCCN guidelines, an annual breast MRI exam along with mammogram is recommended if the patient's lifetime risk is 20% or greater. This exam was interpreted at Station ID: [id number]. NOTE: For mammograms, a report in lay terms will be sent to the patient. Approximately 15% of breast malignancies will not be visualized mammographically. In the management of a palpable breast mass, a negative mammogram must not discourage biopsy of a clinically suspicious lesion. Electronically Signed By: Hector sands/albina:02/16/2024 09:37:18 copy to: Amena Carr letter sent: Normal Exam ACR BI-RADS Category 1: Negative [id number]
== END ==
LOC: MAMMO 14:55
PROVIDERS: Family Provider Family Medicine; PCP Family Medicine; Referring Provider Family Medicine; Visit Provider Family Medicine
DX: Z12.31 Encounter for screening mammogram for malignant neoplasm of breast (principal); Z80.3 Family history of malignant neoplasm of breast; R92.333 Mammographic heterogeneous density, bilateral breasts
CPT/HCPCS: 77063; 77067

== ENCOUNTER → 2025-06-04 16:44 | Outpatient (CLI) | payer OTHER, SELFPAY ==
--- NOTE | 2025-06-04 16:48 | DI.MG.S_ITS ---
MM screening mammo BI: 06/04/2025. BI-RADS: 1 CLINICAL: 64-year old female for bilateral screening mammogram. Tyrer-Cuzick lifetime risk of 14.0%. No personal or first-degree family history of breast cancer. Current reported family history of breast cancer: paternal grandmother. PRIOR EXAMS 02/15/2024, 12/22/2022, 12/16/2021, 07/09/2020, MAMMOGRAPHY TECHNIQUE: 2D and 3D (tomosynthesis) digital mammographic views obtained, with additional images as needed for full coverage. Current study was also evaluated with a Computer Aided Detection (CAD) system. DENSITY C. The breasts are heterogeneously dense, which may obscure small masses. MAMMOGRAPHY FINDINGS Bilateral: No suspicious mass, asymmetry, microcalcification, or other abnormality seen. IMPRESSION: * No evidence of malignancy. RECOMMENDATIONS Bilateral * Annual screening mammography. OVERALL ASSESSMENT CATEGORY BI-RADS-1: Negative. The [employer] recommends annual screening mammography beginning at age 40 for women with average risk of breast cancer. ELECTRONICALLY SIGNED: Alisia Tirado M.D. on 06/05/2025 at 12:16:20 PM PT Interpreting Station ID: [id number]
== END ==
LOC: MAMMO 16:47
PROVIDERS: Family Provider Family Medicine; PCP Family Medicine; Referring Provider Family Medicine; Visit Provider Family Medicine
DX: Z12.31 Encounter for screening mammogram for malignant neoplasm of breast (principal); R92.333 Mammographic heterogeneous density, bilateral breasts; Z80.3 Family history of malignant neoplasm of breast
CPT/HCPCS: 77063; 77067

== ENCOUNTER → 2025-07-11 10:49 | Outpatient (CLI) | payer OTHER, SELFPAY ==
--- NOTE | 2025-07-11 10:51 | DI.US.S_ITS ---
PROCEDURE: US PELVIC COMPLETE INDICATIONS: postmenopausal bleeding TECHNIQUE: Real-time scanning was performed of the pelvic organs, with image documentation. Additional endovaginal scanning was necessary due to incomplete visualization of the adnexal and endometrial structures by transabdominal scanning. COMPARISON: None. FINDINGS: Uterus: 7.7 x 3 x 4.9 cm. Endometrium measures 7 mm overall homogeneous sonographic appearance. Ovaries: Right ovary was not seen. Left ovary measures 7 mL, with a 1.9 cm simple appearing cyst. Other: No pathologic free abdominal or pelvic fluid. IMPRESSION: Mildly thickened endometrium, without discrete lesion. Sampling is suggested in the setting of postmenopausal bleeding. Left ovary contains a 1.9 cm simple cyst. No suspicious features. Dictated by: Jose De Jesus Jamil M.D. on 07/11/2025 at 11:20 Approved by: Jose De Jesus Jamil M.D. on 07/11/2025 at 11:21
== END ==
PROVIDERS: Family Provider Family Medicine; PCP Family Medicine; Referring Provider Registered Nurse; Visit Provider Registered Nurse
DX: N95.0 Postmenopausal bleeding (principal); R93.89 Abnormal findings on diagnostic imaging of other specified body structures; N83.292 Other ovarian cyst, left side
CPT/HCPCS: 76830; 76856